=== PATIENT | male | born 1975 | race American Indian/Alaskan Native ===

== ENCOUNTER 2017-09-22 10:27 | Emergency (ER) | payer MEDICARE ==
[2017-09-22 10:50] VITALS: RESP 18; O2SAT 98
--- NOTE | 2017-09-22 11:01 | ED PDOC ---
Arrival/HPI - General Chief Complaint: Finger,Hand,&Wrist Time Seen by Provider: 09/22/17 10:57 Historian: Patient - History of Present Illness Narrative History of Present Illness (Text): 09/22/17 10:57 A 42 year old male, whose past medical history includes diabetes, hypertension, right metatarsal removal, and L BKA, presents to the emergency department complaining of 1 week duration right thumb pain and swelling with nail discoloration that began 2 days ago. The patient states that he feels pain when palpating the thumb. The patient denies fevers, chills, headache, dizziness, chest pain, shortness of breath, dyspnea on exertion, cough, abdominal pain, nausea, vomiting, diarrhea, back pain, neck pain, urinary/bowel changes, or any other complaint. Time/Duration: 1 week Symptom Onset: Sudden Symptom Course: Unchanged Activities at Onset: Rest, Light Context: Home Past Medical History - Provider Review Nursing Documentation Reviewed: Yes - Infectious Disease Hx of Infectious Diseases: None - Cardiac Hx Hypertension: Yes - Endocrine/Metabolic Hx Diabetes Mellitus Type 1: Yes - Hematological/Oncological Hx Blood Disorders: No - Psychiatric Hx Substance Use: No - Surgical History Hx Orthopedic Surgery: Yes (left BKA) - Anesthesia Hx Anesthesia: Yes Hx Anesthesia Reactions: No Family/Social History - Physician Review Nursing Documentation Reviewed: Yes Family/Social History: No Known Family HX Smoking Status: Unknown If Ever Smoked Hx Alcohol Use: No Hx Substance Use: No Allergies/Home Meds Allergies/Adverse Reactions: Allergies hydrocodone bitartrate [From Vicodin] Allergy (Verified 01/10/16 16:54) VOMITING Home Medications: Home Meds Medication Instructions Recorded Confirmed Furosemide [Lasix] 10 mg PO DAILY 09/22/17 09/22/17 amLODIPine [Norvasc] 10 mg PO DAILY 09/22/17 09/22/17 Review of Systems - Physician Review All systems were reviewed & negative as marked: Yes - Review of Systems Constitutional: absent: Fevers Cardiovascular: absent: Chest Pain Physical Exam - Physical Exam Narrative Physical Exam (Text): GEN: NAD Cardiovascular: Regular rate. Musculoskeletal: Erythema without fluctuance or swelling along the proximal and lateral nail bed. Along the distal- lateral tip of the nail there is an area of yellow/green discoloration and thickness. CV: Radial pulses 2+. Neurologic: Alert, no focal deficit. Sensation intact. Vital Signs Reviewed: Yes Vital Signs Temp Pulse Resp BP Pulse Ox 09/22/17 11:11 98.4 F 75 18 138/74 98 09/22/17 10:42 82 18 140/85 98 Blood Pressure: Normal Pulse: Regular Respiratory Rate: Normal Appearance: Positive for: Well-Appearing, Non-Toxic, Comfortable Pain Distress: None Mental Status: Positive for: Alert and Oriented X 3 Medical Decision Making ED Course and Treatment: 09/22/17 11:07 Impression: A 42 year old male presents to the emergency department complaining of 1 week duration pain to the right thumb with recent discoloration to the nail. Plan: -- Reassess and disposition Prior Visits: Notes and results from previous visits were reviewed. Patient was last seen in the emergency department on 01/09/21. The patient was seen in the emergency department complaining of right temporal pain s/p trauma. The patient was discharged home. Progress Notes: Procedure: Incision & Drainage Performed by the emergency provider Indication: Abscess Location: R 1st digit. Preparation: The area was prepped and draped in the usual sterile fashion and was cleansed with Betadine . Local infiltration of Lidocaine 2% digital block was used for anesthesia. Procedure: The area between the lateral nail and skin was incised with a #10 scalpel. Approximately 0.1 mL of puss was obtained. A dressing was applied by the RN. Post-Procedure: The patient tolerated the procedure well, and there were no complications. Cultured: YES Patient left ED prior to clindamycin administration but he did tell RN that he was going straight to pharmacy to fill prescription. I instructed patient on wound care and to f/u with wound care center. Instructed him to return to ED for worsening pain, swelling, redness, or any other problem. - Lab Interpretations Lab Results: Lab Results 09/22/17 11:08: POC Glucose (mg/dL) 178 H - Medication Orders Current Medication Orders: Discontinued Medications Clindamycin HCl (Cleocin) 300 mg PO STAT STA PRN Reason: Protocol Stop: 09/22/17 11:26 - Scribe Statement The provider has reviewed the documentation as recorded by the Kaylinibdenise Macdonald Provider Scribe Attestation: All medical record entries made by the Scribe were at my direction and personally dictated by me. I have reviewed the chart and agree that the record accurately reflects my personal performance of the history, physical exam, medical decision making, and the department course for this patient. I have also personally directed, reviewed, and agree with the discharge instructions and disposition. Disposition/Present on Arrival - Present on Arrival Any Indicators Present on Arrival: No History of DVT/PE: No History of Uncontrolled Diabetes: No Urinary Catheter: No History of Decub. Ulcer: No History Surgical Site Infection Following: None - Disposition Have Diagnosis and Disposition been Completed?: Yes Diagnosis: Paronychia Disposition: HOME/ ROUTINE Disposition Time: 11:30 Patient Plan: Discharge Patient Problems: Current Active Problems Problem Status Onset Paronychia Acute Condition: STABLE Discharge Instructions (ExitCare): Paronychia (ED) Referrals: [facility] [Outside] - Follow up with primary [facility] Charu Req, [Primary Care Provider] - Follow up with primary Forms: [employer] (Turkmen)
[2017-09-22 11:11] VITALS: TEMP 98.4
[2017-09-22] MEDS ORDERED: Lidocaine 1% Inj (20ml) ONE (11:11)
[2017-09-22 11:31] VITALS: BP 138/74; PULSE 75
== END 2017-09-22 11:46 | disposition home or self-care (01) ==
LOC: ED 10:27
DX: L03.011 Cellulitis of right finger (principal)